=== PATIENT | male | born 1945 | race African-American/Black ===

== ENCOUNTER 2018-07-14 08:40 | Emergency (ER) | payer BC, MEDICARE ==
[2018-07-14] MEDS ORDERED: Ondansetron PF 4 MG/2 ML Vial ONE (09:05)
[2018-07-14 09:32] LABS: ALT (SGPT) 34 U/L (8-55); AST (SGOT) 33 U/L (5-34); Albumin 3.3 g/dL (3.4-4.8); Alkaline Phosphatase 181 U/L (40-150); Anion Gap 23 mmol/L (10-20); BUN (Urea Nitrogen) 94 mg/dL (8.4-25.7); Bilirubin, Total 0.6 mg/dL (0.2-1.2); Calc. Creatinine Clearance 0 mL/min (70-130); Calcium 7.9 mg/dL (7.8-10.44); Carbon Dioxide 19 mmol/L (23-31); Chloride 97 mmol/L (98-107); Estimated GFR-MDRD 7; Globulin 3.4 g/dL (2.4-3.5); Glucose 100 mg/dL (83-110); Lipase 46 U/L (8-78); Potassium 4.4 mmol/L (3.5-5.1); Protein, Total 6.7 g/dL (5.8-8.1); Sodium 135 mmol/L (136-145)
[2018-07-14 09:33] LABS: #Eosinphils 0.1 thou/uL (0.0-0.7); #Monocytes 0.9 thou/uL (0.11-0.59); #Neutrophils 8.8 thou/uL (1.40-6.50); %Basophils 0.4 % (0.0-1.0); %Eosinophils 0.6 % (0.0-10.0); %Lymphocytes 4.8 % (21.0-51.0); %Monocytes 8.8 % (0.0-10.0); %Neutrophils 85.4 % (42.0-75.0); Hemoglobin 9.4 g/dL (14.0-18.0); Hypochromia SLIGHT = 6-15 cells (100X) (0-5/hpf); MDiff Complete? YES; Mean Corpuscular HGB CONC 32.1 g/dL (32.0-36.0); Mean Corpuscular Hemoglobin 20.9 pg (27.0-31.0); Mean Corpuscular Volume 65.1 fL (78.0-98.0); Mean Platelet Volume 6.5 fL (7.4-10.4); Microcytosis SLIGHT = 6-15 cells (100X) (0-5/hpf); Platelet Count 171 thou/uL (130-400); Platelet Morphology Comment Appears Adequate; RBC Distribution Width 13.9 % (11.5-14.5); Red Blood Cell (RBC) Count 4.51 mill/uL (4.70-6.10); Schistocytes SLIGHT = 2-5 cells (100X) (0-1/hpf); White Blood Cell (WBC) Count 10.3 thou/uL (4.8-10.8)
== END 2018-07-14 10:37 | disposition short-term general hospital (02) ==
LOC: EDBD 08:40 → MADERS 08:40
DX: E11.649 Type 2 diabetes mellitus with hypoglycemia without coma (principal); N17.9 Acute kidney failure, unspecified; I10 Essential (primary) hypertension; Z79.84 Long term (current) use of oral hypoglycemic drugs; Z79.899 Other long term (current) drug therapy
CPT/HCPCS: 80053; 83690; 85025; 96361; 96374; J2405

== ENCOUNTER 2020-02-14 15:03 | Observation (INO) | payer MEDICARE, OTHER ==
[2020-02-14 16:41] LABS: #Lymphocytes 1.6 thou/uL (1.20-3.40); #Monocytes 0.3 thou/uL (0.11-0.59); #Neutrophils 4.1 thou/uL (1.40-6.50); %Basophils 0.6 % (0.0-1.0); %Eosinophils 0.4 % (0.0-10.0); %Lymphocytes 26.6 % (21.0-51.0); %Monocytes 4.9 % (0.0-10.0); %Neutrophils 67.5 % (42.0-75.0); Anisocytosis SLIGHT = 6-15 cells (100X) (0-5/hpf); Hemoglobin 5.9 g/dL (14.0-18.0); Hypochromia MODERATE=16-30 cells (100X) (0-5/hpf); MDiff Complete? YES; Macrocytosis MODERATE=16-30 cells (100X) (0-5/hpf); Mean Corpuscular HGB CONC 29.9 g/dL (32.0-36.0); Mean Corpuscular Hemoglobin 19.4 pg (27.0-31.0); Mean Corpuscular Volume 64.8 fL (78.0-98.0); Mean Platelet Volume 5.9 fL (7.4-10.4); Microcytosis SLIGHT = 6-15 cells (100X) (0-5/hpf); Ovalocytes SLIGHT = 2-5 cells (100X) (0-1/hpf); Platelet Count 298 thou/uL (130-400); Platelet Morphology Comment Appears Adequate; RBC Distribution Width 18.2 % (11.5-14.5); Red Blood Cell (RBC) Count 3.03 mill/uL (4.70-6.10); White Blood Cell (WBC) Count 6.1 thou/uL (4.8-10.8)
[2020-02-14 16:45] LABS: ALT (SGPT) 11 U/L (8-55); AST (SGOT) 28 U/L (5-34); Albumin 2.8 g/dL (3.4-4.8); Alkaline Phosphatase 1190 U/L (40-110); Anion Gap 17 mmol/L (10-20); BUN (Urea Nitrogen) 10 mg/dL (8.4-25.7); Bilirubin, Total 0.4 mg/dL (0.2-1.2); Calc. Creatinine Clearance 0 mL/min (70-130); Calcium 7.7 mg/dL (7.8-10.44); Carbon Dioxide 28 mmol/L (23-31); Chloride 99 mmol/L (98-107); Estimated GFR-MDRD Greater than 90; Globulin 3.4 g/dL (2.4-3.5); Glucose 149 mg/dL (83-110); Protein, Total 6.2 g/dL (5.8-8.1); Sodium 141 mmol/L (136-145)
[2020-02-14 17:09] LABS: Potassium 2.8 mmol/L (3.5-5.1)
[2020-02-14] MEDS ORDERED: Potassium Chloride 20 MEQ TAB ONE (17:29)
[2020-02-14] MEDS ORDERED: Acetaminophen 325 MG TAB ONE (18:04)
[2020-02-14] MEDS ORDERED: Sodium Chloride 0.9% 500 ML ONE (18:04)
[2020-02-14 21:15] VITALS: BMI 19.3
[2020-02-15] MEDS: Potassium Chloride 20 MEQ TAB ONE (01:30)
[2020-02-15] MEDS ORDERED: traMADol HCl 50 MG TAB PO PRN (06:54)
[2020-02-15] MEDS ORDERED: Acetaminophen 325 MG TAB PO PRN (07:00)
[2020-02-15] MEDS ORDERED: Ondansetron ODT 4 MG TAB PO PRN (07:00)
[2020-02-15] MEDS ORDERED: Glimepiride 2 MG TAB PO SCH ×2 (07:00→08:00)
[2020-02-15 07:39] LABS: Hemoglobin 7.9 g/dL (14.0-18.0); Red Blood Cell (RBC) Count 3.69 mill/uL (4.70-6.10); White Blood Cell (WBC) Count 5.9 thou/uL (4.8-10.8)
[2020-02-15 07:40] LABS: %Eosinophils 0.3 % (0.0-10.0); %Lymphocytes 23.2 % (21.0-51.0); %Monocytes 5.1 % (0.0-10.0); %Neutrophils 71.1 % (42.0-75.0); Mean Corpuscular HGB CONC 30.5 g/dL (32.0-36.0); Mean Corpuscular Hemoglobin 21.5 pg (27.0-31.0); Mean Corpuscular Volume 70.4 fL (78.0-98.0); Mean Platelet Volume 5.7 fL (7.4-10.4); Platelet Count 271 thou/uL (130-400); RBC Distribution Width 22.5 % (11.5-14.5)
[2020-02-15 07:41] LABS: #Lymphocytes 1.4 thou/uL (1.20-3.40); #Monocytes 0.3 thou/uL (0.11-0.59); #Neutrophils 4.2 thou/uL (1.40-6.50); %Basophils 0.4 % (0.0-1.0)
[2020-02-15 07:59] LABS: Anisocytosis SLIGHT = 6-15 cells (100X) (0-5/hpf); Microcytosis SLIGHT = 6-15 cells (100X) (0-5/hpf); Poikilocytosis SLIGHT = 6-15 cells (100X) (0-5/hpf)
[2020-02-15 08:00] LABS: Platelet Morphology Comment Appears Adequate
[2020-02-15 08:12] VITALS: BP 140/67
[2020-02-15] MEDS: metFORMIN 500 MG TAB PO SCH (09:04)
[2020-02-15] MEDS: Losartan Potassium 50 MG TAB PO SCH (09:05)
[2020-02-15] MEDS: Hydrochlorothiazide 25 MG TAB PO SCH (09:05)
[2020-02-15] MEDS: Glimepiride 2 MG TAB PO SCH (09:05)
[2020-02-15] MEDS: CeleCOXIB 100 MG CAP PO SCH (09:06)
[2020-02-15] MEDS: NATEGLINIDE 60 MG PO SCH (09:06)
[2020-02-15] MEDS: Bicalutamide 50 MG TAB PO SCH (09:06)
[2020-02-15 09:43] LABS: BUN (Urea Nitrogen) 8 mg/dL (8.4-25.7); Calc. Creatinine Clearance 101 mL/min (70-130); Calcium 7.3 mg/dL (7.8-10.44); Carbon Dioxide 30 mmol/L (23-31); Chloride 101 mmol/L (98-107); Estimated GFR-MDRD Greater than 90; Glucose 111 mg/dL (83-110); Potassium 3.3 mmol/L (3.5-5.1); Sodium 142 mmol/L (136-145)
[2020-02-15 09:44] LABS: Anion Gap 14 mmol/L (10-20)
[2020-02-15] MEDS: FLU VACC QS2020-21(65YR UP)/PF 240 MCG/0.7 ML SYRINGE IM ONE (09:59)
[2020-02-15 10:10] VITALS: TEMP 97.4
[2020-02-15 17:32] LABS: SARS-CoV-2 MS2 Positive; SARS-CoV-2 N Gene Negative; SARS-CoV-2 S Gene Negative; SARS-CoV-2 by NAA Not Detected (NotDetected); SARS-CoV-2 orf1ab Negative
[2020-02-15 17:38] LABS: Iron 48 ug/dL (65-175); Iron Binding Capacity, Total 95 mcg/dL (261-462)
[2020-02-15] MEDS ORDERED: Atorvastatin Calcium 10 MG TAB PO SCH (21:00)
--- NOTE | 2020-02-16 13:20 | DIS ---
DATE OF ADMISSION: 02/14/2020 DATE OF DISCHARGE: 02/15/2020 FINAL DIAGNOSES: 1. Severe anemia. a. 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 b. Admission hemoglobin 5.9. Discharge hemoglobin 7.9 after transfused with 2 units of packed RBCs. c. No evidence of any bleeding. 2. Metastatic cancer of the prostate. a. Status post prostatectomy. b. Followed by oncologist, Dr. Reyes, in [place]. 3. Diabetes mellitus type 2. 4. Hypertension. VACCINATIONS DURING OBSERVATION STAY: Patient received influenza vaccine, Fluzone high dose, and Pneumovax 23. SUMMARY: The patient is a 74-year-old Jonathan male, who has a history of hypertension, diabetes type 2, and metastatic cancer of the prostate. He has a chronic anemia probably from the bony metastasis and had required transfusions in the past. The patient is followed by primary care physician in [place], Dr. Fallon. The patient was called by Dr. Fallon to let him know that his blood count was low. It was down to 6 and it was recommended that he go to the emergency room for transfusion. The patient presented here at [facility] Emergency Room and he was having no symptoms. No signs of any bleeding. He denied any upset stomach. Denied any black tarry stools or any blood in his urine. His initial hemoglobin and hematocrit were 5.9 and 19.6 with an MCV of 64, white cell count 6100 with 68% segs, 27% lymphocytes, and platelet count of 298. His sodium was 141, potassium 2.8, BUN 10, creatinine 0.64, glucose 149, calcium 7.7, alkaline phos 1190, albumin 2.8. In the emergency room, patient was given KCl 40 mEq p.o. Also was typed and crossed for 2 units of blood and was given his first unit of blood there in the emergency room. He was then admitted to observation and received his second unit of blood without any difficulty and the blood count this morning several hours after the second unit of blood was up to 7.9, hematocrit of 26. The patient said he felt much better and had no trouble with the transfusion. He was able to review with me his history. PAST MEDICAL HISTORY: Diabetes mellitus type 2; hypertension; cancer of the prostate with extensive bony metastasis, initially underwent a prostatectomy with Dr. Beard in [place] and is now under the care of oncologist, Dr. Sarah Reyes in [place]. He is due to see her next week and have blood work tomorrow. The patient also has a history of gastroesophageal reflux. He, in the past, has had a broken jaw. PRESENT MEDICINES: 1. Tylenol 325 mg two every 4 hours as needed. 2. Atorvastatin 10 mg at bedtime. 3. Casodex (bicalutamide) 50 mg daily. 4. Celebrex 100 mg b.i.d. 5. Glimepiride 4 mg daily. 6. Hydrochlorothiazide 12.5 mg daily. 7. Losartan/hydrochlorothiazide 100/12.5 daily. 8. Metformin 1000 mg b.i.d. 9. Tramadol 50 mg every 8 hours as needed. 10. Pravastatin 40 mg daily. 11. Exenatide (Bydureon) 2 mg subcu every 7 days. 12. Nateglinide 60 mg daily. ALLERGIES: NO KNOWN ALLERGIES. REVIEW OF SYSTEMS: GENERAL: The patient said over the months, he has lost quite a bit of weight, did not know how much. He has not had any recent fever. EYES, EARS, NOSE, AND THROAT: No complaints. PULMONARY: No shortness of breath. CARDIOVASCULAR: No chest pain. GASTROINTESTINAL: No nausea, vomiting, or change in bowel habits. The patient denies any black tarry stools or any blood in his stools. GENITOURINARY: No complaints. MUSCULOSKELETAL: The patient said he has a lot of trouble with his right hip and just some aches and pains, but overall does he thinks okay. DERMATOLOGIC: The patient denies any skin . NEUROLOGIC: The patient denies any headaches or focal weakness. HABITS: The patient does not smoke. Alcohol, occasionally will have a drink. CODE STATUS: Full code. PHYSICAL EXAMINATION: GENERAL: Shows a very pleasant 74-year-old Jonathan male who is sitting up, eating his breakfast. He is alert, talkative, recognized me. He was oriented x3. VITAL SIGNS: His temp was 97.4, pulse 79, respirations 18, O2 saturation 99% on room air, blood pressure 140/67, weight 150. HEENT: Head, normocephalic and atraumatic. Eyes, pupils are equal, round, and reactive. Sclerae nonicteric. Ears; TMs are clear on the left. Right TM obscured by some cerumen. Nose normal. Mouth and throat normal. Patient wears upper denture plate. NECK: Carotids are equal and strong. No bruits. Thyroid not enlarged. LUNGS: Clear. HEART: Regular rate. No murmurs. ABDOMEN: Soft with no organomegaly. No areas of tenderness. EXTREMITIES: Lower extremities, there is trace edema in both lower extremities. Decreased range of motion in the right hip. IMPRESSION: 1. Severe anemia. a. Secondary to his extensive bony metastasis from cancer of the prostate. b. Transfused 2 units of blood. Admission hemoglobin 5.9, discharge hemoglobin 7.9. 2. Metastatic cancer of the prostate. 3. Diabetes type 2, controlled. 4. Hypertension. PLAN: The patient had been admitted to observation having received his first unit of blood in the emergency room. He received the second unit of blood during in observation with no difficulty. His followup potassium check is pending. His condition is stable and he is ready to go home. I will discharge patient on the same medicines as listed under the present medicines. In addition to that, we will add potassium 10 mEq b.i.d. He said he is already on iron tablets, did not know the dose, but he says he takes them 1 a day. Prior to his discharge, I have ordered a serum iron, TIBC, and serum ferritin. The patient is due to have lab work tomorrow for Dr. Reyes and then see her on Wednesday, 02/20. He should follow up with his regular physician, Dr. Fallon, within 1 to 2 weeks. CODE STATUS: Full code. Job ID: [id number]
== END 2020-02-15 10:50 | disposition home or self-care (01) ==
LOC: MADERS 15:03 → MADMS 20:42 → INTOOBSV 20:42
PROVIDERS: ADMIT Family Medicine; ATTEND Family Medicine
DX: C61 Malignant neoplasm of prostate (principal); D63.0 Anemia in neoplastic disease; C79.51 Secondary malignant neoplasm of bone; E11.9 Type 2 diabetes mellitus without complications; I10 Essential (primary) hypertension; Z79.84 Long term (current) use of oral hypoglycemic drugs; Z79.899 Other long term (current) drug therapy
CPT/HCPCS: 36415; 36430; 80048; 80053; 82274; 82728; 83540; 83550; 85025; 86850; 86900; 86901; 87635; 90471; 90662; 90732; 93005; G0008; G0009; G0378; J7030; P9016; U0003